=== PATIENT | male | born 1970 | race Caucasian/White ===

== ENCOUNTER 2020-01-06 12:23 | Emergency (ER) | payer OTHER, MEDICAID ==
[~2020-01-06] VITALS: Ht 180.3 cm; Wt 79.5 kg
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
--- OUTSIDE RECORDS SUMMARY | 2020-01-06 12:29 | XMS REPORT ---
Author Author Anupam PHAN Organization [facility] Address [address] [place] [address] Care Team Providers Care Advertising Copywriter Name Role Phone JOSEPHINE PHAN Unavailable PROBLEMS Type Condition ICD9-CM Code [id number]-SM Code Onset Dates Condition S tatus SNOMED Code Problem Cellulitis, unspecified cellulitis site L03.90 Active 962231512 Problem Erectile dysfunction, unspecified erectile dysfunction typ e N52.9 Active 742722824 Problem Low back pain M54.5 Active 509523 009 Problem Neck pain M54.2 Active 50001835 ALLERGIES No Information ENCOUNTERS Encounter Location Date Diagnosis [place] [id number] [facility] [id number] [address] [place] [phone] Feb, Neck pain M54.2 and Low back pain M54.5 [place] [address] [facility] [id number] [address] [place] [phone] Jan, Neck pain M54.2 and Low back pain M54.5 [place] [address] [facility] [id number] [address] [place] [phone] Dec, Neck pain M54.2 ; Low back p ain M54.5 ; Cellulitis, unspecified cellulitis site L03.90 and Erectile dysfunction, unspecified erectile dysfunction type N52.9 [facility] [address] [facility] [id number] [address] [place] [phone] Oct, Low back pain M54.5 ; Neck p ain M54.2 and Dorsalgia, unspecified M54.9 [place] [address] [facility] [id number] [address] [place] [phone] Oct, [place] [address] [facility] [id number] [address] [place] [phone] September, Dorsalgia, unspecified M54.9 [facility] [address] [facility] [id number] [address] [place] [address] Aug, Encounter to establish care Z76.89 ; Screening cholesterol level Z13.220 and Dorsalgia, unspecified M54.9 IMMUNIZATIONS No Known Immunizations SOCIAL HISTORY Never Assessed REASON FOR VISIT Oxycodone and valium- 03/03 PLAN OF CARE VITAL SIGNS MEDICATIONS Medication Instructions Dosage Frequency Start Date End Date Duration S tatus Valium 5 mg Orally Twice a day 1 tablet as needed 12h 17 Dec, 2016 28 days Active Percocet 7.5-325 MG Orally 3 times a day 1 tablet 8h 12 Feb, 2017 28 days Active RESULTS No Results [...]
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
--- NOTE | 2020-01-06 12:35 | NUR ---
Pt report given to ROBERT Denis to assume pt care at this time.
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
--- NOTE | 2020-01-06 12:50 | NUR ---
Pt refuses CT contrast stating "I don't need that." Education reviewed with pt regarding risks and benefits of CT scan. Pt continues to refuse CT contrast scan.
--- NOTE | 2020-01-06 13:02 | NUR ---
Pt to CT. ROBERT Denis et Jeimy, digital tech at side.
--- NOTE | 2020-01-06 13:19 | Diagnostic Imaging Report ---
CHEST 1 VIEW, AP/PA ONLY Indication: Trauma Comparison: None available. Findings: No focal airspace disease in the visualized lungs. Please note that the posterior lower lobes are poorly evaluated by portable radiography. No pleural effusion or pneumothorax. Normal cardiomediastinal silhouette. No displaced fracture in the clavicles or visualized ribs. Age-indeterminate but likely subacute-chronic fracture the posterior lateral aspect of the left 6th and 7th ribs. Impression: 1. No acute cardiopulmonary process by portable radiography. Dictated by: Dictated on workstation # [id number]
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
--- NOTE | 2020-01-06 13:28 | NUR ---
Pt returns from CT scan.
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
--- NOTE | 2020-01-06 13:41 | NUR ---
THE PT REFUSED LAB DRAW.
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
[2020-01-06] MEDS ORDERED: fentaNYL INJECTION 100 MCG/2 ML AMP IM ONE (13:45)
[2020-01-06] MEDS ORDERED: HYDROcodone/APAP 5 MG/325 MG (LORTAB) TAB PO ONE (13:45)
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
--- NOTE | 2020-01-06 14:58 | Diagnostic Imaging Report ---
INDICATION: Knee pain. TECHNIQUE: Three views of the left knee. CORRELATION STUDY: None. FINDINGS: The joint spaces are maintained. The articular surfaces are smooth and preserved. There is no acute bony abnormality. Heterogeneous sclerosis of the distal femur most compatible with area of bone infarct. Small amount of edema particularly in the suprapatellar region. IMPRESSION: Negative for acute bony abnormality of the knee. Suprapatellar soft tissue edema. Dictated by: Dictated on workstation # [id number]
[2020-01-06] MEDS ORDERED: HYDR-3812 PO (15:20)
[2020-01-06 15:35] VITALS: BP 136/92
== END 2020-01-06 15:37 | disposition home or self-care (01) ==
LOC: ER 12:25
DX: S82.044A Nondisplaced comminuted fracture of right patella, initial encounter for closed fracture (principal); S30.1XXA Contusion of abdominal wall, initial encounter; T14.8XXA Other injury of unspecified body region, initial encounter; R40.2142 Coma scale, eyes open, spontaneous, at arrival to emergency department; R40.2252 Coma scale, best verbal response, oriented, at arrival to emergency department; R40.2362 Coma scale, best motor response, obeys commands, at arrival to emergency department; V49.40XA Driver injured in collision with unspecified motor vehicles in traffic accident, initial encounter; Y92.411 Interstate highway as the place of occurrence of the external cause
CPT/HCPCS: 70450; 71045; 72125; 72170; 73562; 73610; 74176; 93041